=== PATIENT | male | born 1980 ===

== ENCOUNTER 2017-07-02 12:53 | Emergency (ER) | payer SELFPAY ==
--- NOTE | 2017-07-02 15:05 | C.PDOC ---
History Of Present Illness 37 y/o male presents to the ER complaining of right ear pain since yesterday. Describes pain as constant and throbbing. Patient took Bactrim that he had leftover at home. No cough, sore throat, chest pain, shortness of breath, fever , or chills. PMD: none Time Seen by Provider: 07/02/17 14:26 Chief Complaint (Nursing): ENT Problem History Per: Patient History/Exam Limitations: None Onset/Duration Of Symptoms: Days (x2) Current Symptoms Are (Timing): Still Present Past Medical History Reviewed: Historical Data, Nursing Documentation, Vital Signs Vital Signs: Last Vital Signs Temp 97.7 F 07/02/17 13:47 Pulse 58 L 07/02/17 13:47 Resp 16 07/02/17 13:47 BP 101/67 07/02/17 13:47 Pulse Ox 98 07/02/17 15:08 - Medical History PMH: No Chronic Diseases Family History: States: No Known Family Hx - Social History Hx Alcohol Use: No Hx Substance Use: No - Immunization History Hx Tetanus Toxoid Vaccination: No Hx Influenza Vaccination: No Hx Pneumococcal Vaccination: No Review Of Systems Except As Marked, All Systems Reviewed And Found Negative. Constitutional: Negative for: Fever, Chills ENT: Positive for: Ear Pain. Negative for: Throat Pain Cardiovascular: Negative for: Chest Pain Respiratory: Negative for: Cough, Shortness of Breath Musculoskeletal: Negative for: Neck Pain Physical Exam - Physical Exam Appears: Non-toxic, No Acute Distress Skin: Normal Color, Warm, Dry Head: Atraumatic, Normacephalic Eye(s): bilateral: Normal Inspection, PERRL, EOMI Ear(s): Bilateral: Normal (non-bulging, non-erythematous) Nose: Normal Oral Mucosa: Moist Neck: Normal ROM, Supple Neurological/Psych: Oriented x3, Normal Speech ED Course And Treatment O2 Sat by Pulse Oximetry: 98 (RA) Pulse Ox Interpretation: Normal Medical Decision Making Medical Decision Making: Time: 14:30 Plan: * Motrin 600 mg PO * Tylenol 975 mg PO Disposition Counseled Patient/Family Regarding: Diagnosis, Need For Followup, Rx Given - Disposition Disposition: HOME/ ROUTINE Disposition Time: 15:38 Condition: STABLE Prescriptions: Ibuprofen [Motrin] 1 tab PO TID PRN #30 tab PRN Reason: Pain Forms: [employer] (Persian), Gen Discharge Inst Welsh, Work Excuse - POA Present On Arrival: None - Clinical Impression Clinical Impression: Earache on right - Scribe Statement The provider has reviewed the documentation as recorded by the Gayathriibe Rand Finch Provider Attestation: All medical record entries made by the Gayathriibe were at my direction and personally dictated by me. I have reviewed the chart and agree that the record accurately reflects my personal performance of the history, physical exam, medical decision making, and the department course for this patient. I have also personally directed, reviewed, and agree with the discharge instructions and disposition.
[2017-07-02 15:48] VITALS: BP 110/77; PULSE 49; RESP 20; TEMP 97.9; O2SAT 96
== END 2017-07-02 15:52 | disposition home or self-care (01) ==
LOC: C.ER 12:53
DX: H92.01 Otalgia, right ear (principal)